=== PATIENT | male | born 1970 | race Caucasian/White ===

== ENCOUNTER 2020-12-11 10:11 | Day surgery (SDC) | payer OTHER, SELFPAY ==
--- NOTE | 2020-12-11 | ESO_PTH ---
PATIENT: NADEEN AKINS LOC: EN U#:[id number] AGE/SX: 50/M ROOM: RE12/11/[address]: Dr. Vishal Gates DO : 1970 BED: DIS: 12/11/2020 SPEC #: [id number] RECD: 12/11/20 13:30 STATUS: ALYCE JEFF #: [id number] HERNAN: 12/11/20 00:[address]: Vishal Gates DEPT: SURGICAL PATHOLOGY RECD BY: Chris Hartley ENTERED: 12/12/20 09:13 SP TYPE: CAROL FELDMAN DR: Dr. Van Waldrop MD Tissues: Esophagus, NOS Procedures: Surgery Specimen Level IV HEADER [place] [place] DIAGNOSIS: Eosinophilic esophagitis; abdominal pain TISSUE SUBMITTED: Mid esophagus MICROSCOPIC DIAGNOSIS Mid esophagus, biopsy: Fragments of squamous mucosa with changes consistent with eosinophilic esophagitis. See comment. PEPITO:girish 12/15/2020 COMMENT Increased number of eosinophils (>20/hpf) consistent with eosinophilic esophagitis are noted. Correlation with clinical, endoscopic findings and appropriate follow up are necessary. MICROSCOPIC DESCRIPTION Slides are reviewed. GROSS DESCRIPTION Received in fixative is one container labeled with the patient's name and designated mid esophagus biopsy. The specimen consists of multiple irregular fragments of light oliva soft tissue that in aggregate measure 1 x 0.3 x 0.1 cm. The specimen is totally submitted in one cassette. / PEPITO:girish 12/12/20 TC:3 CPT: 76986
[2020-12-11] MEDS: Lactated Ringers 1,000 ML 15 ML IV (10:20)
[2020-12-11 10:43] VITALS: BP 136/92; PULSE 77; RESP 16; TEMP 36.6; O2SAT 99; BMI 33.1
--- NOTE | 2020-12-11 10:46 | PCM.HP.BLA ---
History and Physical Date of Admission: 12/11/20 1 M who presents to the office today for Evaluation of emesis of food and what looks like dark blood with reflux, burning and difficulty swallowing. He states he was previously Prevacid was on Prevacid previously there was changed to pantoprazole. He was told that he has difficulty with being allergic to something that causes rings in his esophagus to swell. He denies any chest pain or shortness of breath. He denies any nausea. He denies any numbness or tingling this. EGD performed by Dr. Narvaez around 1999. ROS Const Constitutional: Positive for fatigue ENT ENT: Positive for difficulty swallowing and sore throat Gastro GI: Positive for heartburn, difficulty swallowing, Vomiting blood/hematemesis and vomiting Genitourinary Male: Positive for urinary frequency Endo Endocrine: Positive for fatigue and increased urine leakage Exam Const General: cooperative and comfortable Nutritional Appearance: average body habitus and well nourished HENMT Head: normal to inspection Ears: hearing grossly normal bilaterally Nose: external nose normal Face and sinus: normal facial exam Mouth: oral mucosae normal Throat: posterior oropharynx normal Eyes General: appearance normal, both eyes and all related structures Neck Neck: normal visual inspection Chest Chest palpation & inspection: normal inspection of the chest and normal palpation of entire chest wall Resp Effort & Inspection: normal respiratory effort Auscultation: Bilateral: Clear to Auscultation Cardio Palpation: normal PMI Rate: regular rate Rhythm: regular rhythm GI Inspection: normal to inspection Auscultation: normal bowel sounds Percussion: normal to percussion Palpation: no hepatosplenomegaly Skin General: no rashes or lesions noted Neuro General: patient alert Extrem General: normal to inspection Psych Affect: normal affect Quality Reporting Tobacco Screening ([facility] 138) Smoking Status: Never smoker Assessment and Plan Assessment and Plan (1) Eosinophilic esophagitis: Status: Acute Plan - Dr. Rodgers Friend, DO: We will perform an upper endoscopy to evaluate his upper GI tract. We will also take random biopsies to the esophagus. If he needs to be dilated we will dilate his esophagus. (2) Abdominal pain: Status: Acute Plan - Dr. Rodgers Friend, DO: Peptic ulcer disease is a possible etiology of his abdominal pain. It has gotten better since going on PPI therapy. He was told that he had an ulcer previously. He does not know if it was in the small bowel or other stomach. He will not take any NSAIDs for the next several days until he has an upper endoscopy. At that time will be able to tell him exactly how to monitor his symptoms.
[2020-12-11 12:37] VITALS: BP 125/77; BP 136/92; PULSE 77; RESP 18; TEMP 36; O2SAT 92
[2020-12-11 12:40] VITALS: BP 127/80; BP 136/92; PULSE 71; RESP 22; O2SAT 93
[2020-12-11 12:44] VITALS: BP 111/58; BP 136/92; PULSE 69; RESP 20; O2SAT 97
--- NOTE | 2020-12-11 12:46 | OP.EGD_ITS ---
Patient Name: Gil Carreno Procedure Date: 12/11/2020 12:11 PM Date of : 1970 Age: 50 Procedure: Upper GI endoscopy Indications: Dysphagia Providers: Vishal Gates DO Medicines: See the Anesthesia note for documentation of the administered medications Patient Profile: This is a 50 year old male. Refer to note in patient chart for documentation of history and physical. Patient has symptoms. He is status post EGD for biopsy and EGD for dilation. Complications: No immediate complications. Procedure: Pre-Anesthesia Assessment: - Prior to the procedure, a History and Physical was performed, and patient medications and allergies were reviewed. The patient is competent. The risks and benefits of the procedure and the sedation options and risks were discussed with the patient. All questions were answered and informed consent was obtained. Patient identification and proposed procedure were verified by the physician in the pre-procedure area. Mental Status Examination: alert and oriented. Airway Examination: normal oropharyngeal airway and neck mobility. Respiratory Examination: clear to auscultation. CV Examination: normal. Prophylactic Antibiotics: The patient does not require prophylactic antibiotics. Prior Anticoagulants: The patient has taken no previous anticoagulant or antiplatelet agents. ASA Grade Assessment: II - A patient with mild systemic disease. After reviewing the risks and benefits, the patient was deemed in satisfactory condition to undergo the procedure. The anesthesia plan was to use moderate sedation / analgesia (conscious sedation). Immediately prior to administration of medications, the patient was re-assessed for adequacy to receive sedatives. The heart rate, respiratory rate, oxygen saturations, blood pressure, adequacy of pulmonary ventilation, and response to care were monitored throughout the procedure. The physical status of the patient was re-assessed after the procedure. After obtaining informed consent, the endoscope was passed under direct vision. Throughout the procedure, the patient's blood pressure, pulse, and oxygen saturations were monitored continuously. The Endoscope was introduced through the mouth, and advanced to the second part of duodenum. The upper GI endoscopy was accomplished without difficulty. The patient tolerated the procedure well. Moderate Sedation: Moderate (conscious) sedation was administered by the endoscopy nurse and supervised by the endoscopist. The patient's oxygen saturation, heart rate, blood pressure and response to care were monitored. Total physician intraservice time was 15 minutes. Scope In: 12:23:42 PM Scope Out: 12:30:51 PM Total Procedure Duration Time 0 hours 7 minutes 9 seconds Findings: Mucosal changes including ringed esophagus, feline appearance, longitudinal furrows, small-caliber esophagus, white plaques, circumferential folds, congestion (edema), crepe paper esophagus, esophageal erosions, longitudinal markings, mucosal friability, punctuate white spots, stenosis, tight circumferential folds and vertical lines were found in the entire esophagus. Esophageal findings were graded using the Eosinophilic Esophagitis Endoscopic Reference Score (EoE-EREFS) as: Edema Grade 1 Present (decreased clarity or absence of vascular markings), Rings Grade 3 Severe (distinct rings that do not permit passage of diagnostic 8-10 mm endoscope), Exudates Grade 2 Severe (scattered white lesions involving 10 percent or greater of the esophageal surface area), Furrows Grade 1 Present (vertical lines with or without visible depth), Stricture present (4 mm luminal diameter) and Stricture present (5 mm luminal diameter). Biopsies were taken with a cold forceps for histology. Verification of patient identification for the specimen was done. A TTS dilator was passed through the scope. Dilation with a 15-16.5-18 mm balloon dilator was performed to 15 mm. The dilation site was examined following endoscope reinsertion and showed complete resolution of luminal narrowing. Estimated blood loss was minimal. Impression: - Esophageal mucosal changes secondary to eosinophilic esophagitis. Biopsied. Dilated. Recommendation: - Discharge patient to home. - Full liquid diet today. - Use Protonix (pantoprazole) 40 mg PO BID for 8 weeks. - Continue present medications. Procedure Code(s): --- Professional --- 50006, 59, Esophagogastroduodenoscopy, flexible, transoral; with transendoscopic balloon dilation of esophagus (less than 30 mm diameter) G0500, Moderate sedation services provided by the same physician or other qualified health health care aide performing a gastrointestinal endoscopic service that sedation supports, requiring the presence of an independent trained observer to assist in the monitoring of the patient's level of consciousness and physiological status; initial 15 minutes of intra-service time; patient age 5 years or older (additional time may be reported with 63010, as appropriate) Diagnosis Code(s): --- Professional --- K20.0, Eosinophilic esophagitis R13.10, Dysphagia, unspecified CPT copyright 2017 [employer]. All rights reserved. The codes documented in this report are preliminary and upon insurance coder review may be revised to meet current compliance requirements. Vishal Gates DO 12/11/2020 12:45:58 PM This report has been signed electronically. Number of Addenda: 1 Note Initiated On: 12/11/2020 12:11 PM Addendum Number: 1 Addendum Date: 10/09/2021 6:14:13 AM MAC was used instead of moderate sedation for this patient. Vishal Gates DO 10/09/2021 6:14:18 AM This report has been signed electronically.
[2020-12-11 12:47] VITALS: BP 124/88; BP 136/92; PULSE 65; RESP 20; TEMP 36.2; O2SAT 100
[2020-12-11] MEDS: Sucralfate 1 GM Tablet PO (13:36)
[2020-12-11 14:04] VITALS: BP 136/92
== END 2020-12-11 14:10 | disposition home or self-care (01) ==
LOC: EN 10:24 → AC 10:25
PROVIDERS: PCP Family Medicine; Referring Provider Family Medicine; Visit Provider Internal Medicine Gastroenterology
PROC: 0DJ08ZZ Inspection of Upper Intestinal Tract, Via Natural or Artificial Opening Endoscopic (ICD-10-PCS; CPT 43235; principal; 2020-12-11 13:10)
DX: K20.0 Eosinophilic esophagitis (principal); R13.10 Dysphagia, unspecified; R10.9 Unspecified abdominal pain
CPT/HCPCS: 43249; 87426; 88305; J7120; J2405; J3490

== ENCOUNTER → 2020-12-25 16:29 | Outpatient (CLI) | payer OTHER, SELFPAY ==
[2020-12-29 13:28] LABS: Gastrin, Serum 23 pg/mL (0-115)
== END ==
PROVIDERS: PCP Family Medicine; Visit Provider Internal Medicine Gastroenterology
DX: K20.0 Eosinophilic esophagitis (principal)
CPT/HCPCS: 36415; 82941

== ENCOUNTER 2024-03-10 09:44 | Emergency (ER) | payer OTHER, SELFPAY ==
[2024-03-10 09:44] VITALS: BP 129/94; PULSE 89; RESP 20; TEMP 36.1; O2SAT 100; BMI 29.5
--- NOTE | 2024-03-10 09:51 | EKG12_ITS ---
Test Reason : GENERAL Blood Pressure : */* mmHG Vent. Rate : 80 BPM Atrial Rate : 80 BPM P-R Int : 172 ms QRS Dur : 86 ms QT Int : 350 ms P-R-T Axes : 12 0 9 degrees QTcB Int : 403 ms Normal sinus rhythm Normal ECG Confirmed by JABARI CASTRO, AMANDA ([id number]), field map editor RHONA BROCK ([id number]) on 03/12/2024 8:17:34 AM Referred By: Confirmed By: AMANDA BARBOZA MD
--- NOTE | 2024-03-10 10:01 | CT_ITS ---
PROCEDURE: ABDOMEN/PELVIS W IV CONT ONLY REASON FOR EXAM: Pain TECHNIQUE: Abdomen and pelvis CT with intravenous contrast. IV CONTRAST: COMPARISON: None. FINDINGS: Lung bases: Clear Liver: Unremarkable. Gallbladder: Unremarkable. Spleen: Unremarkable. Pancreas: Unremarkable. Adrenals: Unremarkable. Kidneys: Unremarkable. Bladder: Unremarkable. Reproductive Organs: Unremarkable. Bowel: Normal appendix. No dilation. Prominent diverticulosis in the sigmoid colon with notable pericolonic inflammatory stranding surrounding the sigmoid colon with an additional peripherally enhancing low-attenuation abscess adjacent to the sigmoid colon measuring 3.0 x 2.3 cm. No prominent pneumoperitoneum. Appendix: Normal. Lymph nodes: No suspicious lymph node enlargement. Vasculature: Major vascular structures are unremarkable. Peritoneum / Retroperitoneum: No ascites. No free air. Bones: Unremarkable. CT/Abdomen/Pelvis W IV Cont ONLY IMPRESSION: Complicated sigmoid diverticulitis with perisigmoid abscess, as described above . One or more dose reduction techniques were used (e.g., Automated exposure contr ol, adjustment of the mA and/or kV according to patient size, use of iterative reconstruction technique). Reading Location: [facility]
--- NOTE | 2024-03-10 10:01 | EX.ED.DYSGE1 ---
HPI History of Present Illness Chief Complaint: Abd Pain Narrative Narrative: Patient is a 53-year-old male with a past medical history of anemia, GERD, send follow-up esophagitis who presented to the emerged part with a chief complaint of abdominal pain. He states that he saw his primary care physician on was tested for a bladder infection was prescribed antibiotics however states that on Tuesday when the culture result came back was told that this was normal and states that if he had pain or worsening pain he was to come to the emergency department. He states the pain is worse at night and is improving throughout the day. Patient states he has not had any issues with constipation in the past. Patient states that he is passing gas and denies any dark tarry stools or blood in stool states that he is having diarrhea. Patient states that he has had hernia surgery at a young age but denies any other previous abdominal surgeries. Denies any sick contacts. [facility] Medical History Loss of hearing Anemia Difficulty swallowing History of ulceration Gastric reflux Former smoker Abdominal pain Eosinophilic esophagitis Home Medications ?Medication ?Instructions ?Recorded ?Last Taken ?Type pantoprazole 40 mg tablet,delayed 40 mg PO BID #60 TABLETS 02/06/24 Unknown Rx release ciprofloxacin HCl 500 mg tablet 500 mg PO Q12H 14 days #28 tabs 03/10/24 Unknown Rx metronidazole 500 mg tablet 500 mg PO TID 14 days #42 tabs 03/10/24 Unknown Rx ondansetron 4 mg disintegrating 4 mg PO Q6H PRN nausea and 03/10/24 Unknown Rx tablet vomiting #20 tabs oxycodone-acetaminophen 5 mg-325 1 tab PO Q4H PRN pain 3 days #12 03/10/24 Unknown Rx mg tablet tabs Allergy/AdvReac Type Severity Reaction Status Date / Time Penicillins Allergy Swelling Verified 03/10/24 09:46 Surgical History History of esophagogastroduodenoscopy (EGD) Hx of colonoscopy Social History household members: family housing: house Smoking Status: Former smoker ROS ROS ED ROS Narrative Constitutional: Denies any fevers, chills, headaches Eyes: Denies change in vision double vision blurry vision Cardiovascular: Denies chest pain or palpitations Respiratory: Denies coughing wheezing shortness of breath Abdomen: Complains of abdominal pain and diarrhea as noted above denies nausea or vomiting : Denies painful urination, hematuria, polyuria Neurological: Denies any numbness, weakness, tingling Musculoskeletal: Denies back pain Skin: denies rashes or lesions EXAM Physical Exam Narrative Exam Narrative: General: Patient was lying in bed rest comfortably did not appear to be in acute distress Head: Atraumatic, normocephalic Eyes: PERRL bilaterally, EOMI bilaterally, no conjunctival injection noted Neck: Soft, supple, trachea midline Cardiovascular: Regular rate and rhythm Respiratory: Clear to auscultation bilaterally Abdomen: Soft, nondistended, tenderness palpation in the left lower quadrant and suprapubic region no rebound or guarding on exam Extremities: +5/5 strength noted in the bilateral upper and lower extremities, radial pulses +2/4 in the bilateral per extremities, no pedal edema on exam Neurological: Patient following commands knew that he was at [facility] year is 2024 Skin: Warm, dry, intact no rashes or lesions noted Const Vital Signs: 03/10/24 09:44 Temperature 97.0 F L Temperature Source Temporal Pulse Rate 89 Respiratory Rate 20 H Blood Pressure 129/94 H Blood Pressure Mean 105 Pulse Ox 100 Oxygen Delivery Method Room Air MDM MDM MDM Narrative Medical decision making narrative: Patient is a 53-year-old male who presented to the emergency department the chief complaint of abdominal pain. On the differential diagnose includes but not limited to diverticulitis, appendicitis, bowel obstruction. Once workup is obtained reviewed he will be reevaluated. Patient given IV fluids, morphine Zofran. Patient CBC reviewed and showed no evidence leukocytosis white blood count was 10.2, hemoglobin was 11, plate count was noted be 390. Patient sodium was noted to be 134, potassium normal at 4.1, creatinine was 1.36 which is slightly elevated from his baseline. Patient AST and ALT were 83 and 137 respectively. Patient's urinalysis reviewed showed no evidence of infection. Patient CT abdomen pelvis with IV contrast was reviewed that showed complicated sigmoid diverticulitis with a perisigmoid abscess. Did order the patient ciprofloxacin and Flagyl given his allergy to penicillin. I did call and discussed case with on-call general surgeon Dr. Del Toro who came in and evaluated the patient at bedside. He states that he will follow-up with the patient in the outpatient setting early this coming week. He is recommending placing the patient on ciprofloxacin and Flagyl and the patient completing a clear liquid diet until the pain resolves advance as tolerated. Patient will given a prescription for Percocet Zofran for severe pain. He was encouraged to return with worsening symptoms and concerns. He is agreeable this plan all question concerns answered he is discharged home in stable condition. Lab Data Labs: Laboratory Results - last 24 hr 03/10/24 03/10/24 10:00 10:42 WBC 10.2 RBC 5.15 Hgb 11.0 L Hct 37.6 L MCV 73.0 L MCH 21.4 L MCHC 29.3 L RDW Std Deviation 40.1 RDW Coeff of Bernardo 15.5 H Plt Count 390 MPV 10.2 Immature Gran % (Auto) 0.300 Neut % (Auto) 76.8 H Lymph % (Auto) 9.9 L Day % (Auto) 8.5 Eos % (Auto) 3.7 Baso % (Auto) 0.8 Absolute Neuts (auto) 7.9 H Absolute Lymphs (auto) 1.01 Nucleated RBC % 0 Sodium 134 L Potassium 4.1 Chloride 104 Carbon Dioxide 21.0 Anion Gap 8 BUN 10 Creatinine 1.36 H Estim Creat Clear Calc 65.66 Est GFR (MDRD) Af Amer 70 Est GFR (MDRD) Non-Af 58 L BUN/Creatinine Ratio 7.4 L Glucose 88 Calcium 8.8 Total Bilirubin 0.50 AST 83 H ALT 137 H Alkaline Phosphatase 116 Total Protein 7.9 Albumin 3.5 Globulin 4.4 H Albumin/Globulin Ratio 0.8 L Lipase 41 Urine Color Yellow Urine Clarity Clear Urine pH 6.0 Ur Specific [place] 1.020 Urine Protein 15 H Urine Glucose (UA) Normal Urine Ketones Negative Urine Occult Blood 10 H Urine Nitrite Negative Urine Bilirubin Negative Urine Urobilinogen Normal Ur Leukocyte Esterase 25 H Urine RBC 0 SEEN Urine WBC 0-5 SEEN Ur Squamous Epith Cells 0 SEEN Urine Bacteria 0 SEEN Urine Mucus 0 SEEN Radiography Diagnostic Testing: Clinical Impression(s) from Imaging Studies Abdomen/Pelvis CT 03/10/24 10:01 IMPRESSION: Complicated sigmoid diverticulitis with perisigmoid abscess, as described above. One or more dose reduction techniques were used (e.g., Automated exposure control, adjustment of the mA and/or kV according to patient size, use of iterative reconstruction technique). Reading Location: [facility] Discharge Plan Triage Chief Complaint: Abd Pain ED Provider: Bubba Mcfarland Dx/Rx/DC Orders Clinical Impression: Diverticulitis of intestine with abscess Prescriptions: New ciprofloxacin HCl 500 mg tablet 500 mg PO Q12H 14 Days Qty: 28 0RF metronidazole 500 mg tablet 500 mg PO TID 14 Days Qty: 42 0RF ondansetron 4 mg tablet,disintegrating 4 mg PO Q6H PRN (Reason: nausea and vomiting) Qty: 20 0RF oxycodone-acetaminophen 5-325 mg tablet 1 tab PO Q4H PRN (Reason: pain) 3 Days Qty: 12 0RF No Action pantoprazole 40 mg tablet,delayed release (DR/EC) 40 mg PO BID Qty: 60 4RF Primary Care Provider: Van Waldrop Referrals: Van Waldrop MD [Primary Care Provider] - Activity Restrictions/Additional Instructions: Follow-up with Dr. Del Toro in the outpatient setting as he discussed with you here in the emergency department. Take antibiotics as prescribed. Use the Percocet and Zofran for severe pain do not operate anything under the influence of the Percocet. Clear liquid diet until pain resolves. Your CT scan showed diverticulitis with abscess. You need to return with worsening symptoms or any other concerns Print Language: Algerian Disposition Disposition: Home, Self Care
[2024-03-10] MEDS: Ondansetron 4 MG/2 ML Vial IV (10:10)
[2024-03-10] MEDS: 0.9% Normal Saline (1000mL) 1,000 ML 999 ML IV (10:10)
[2024-03-10] MEDS: Morphine 4 MG/ML Syringe IV ×2 (10:10→12:22)
[2024-03-10 10:13] LABS: Absolute Lymphocyte Count 1.01 X10^3/uL (0.83-4.51); Absolute Neutrophil Count 7.9 X10^3/uL (2.0-7.7); Basophil# 0.08 X10^3/uL; Basophil% 0.8 % (0-1); Eosinophil# 0.38 X10^3/uL; Eosinophils% 3.7 % (0-5); Hematocrit 37.6 % (40-54); Lymphocyte # 1.01 X10^3/ul (0.83-4.51); Lymphocyte % 9.9 % (19-41); Mean Corp Hgb Conc 29.3 g/dL (32-36); Mean Corpuscular Hgb 21.4 pg (27.0-32.0); Mean Platelet Vol. 10.2 fl (6.2-12.0); Monocyte# 0.87 X10^3/uL; Monocyte% 8.5 % (0-10); NRBC Flagged by Analyzer 0 % (0-5); Neutrophil # 7.85 X10^3/uL (2.7-7.7); Neutrophil % 76.8 % (47-70); Platelet Count 390 K/mm3 (150-450); RBC Distribution Width CV 15.5 % (11.6-14.6); RBC Distribution Width SD 40.1 fl (35.1-43.9); Red Blood Count 5.15 M/mm3 (4.6-6.2); White Blood Count 10.2 K/mm3 (4.4-11.0)
[2024-03-10 10:37] LABS: ALB/GLOB Ratio 0.8 RATIO (0.9-2.4); AST(SGOT) 83 U/L (15-37); Alanine Aminotransfer ALT/SGPT 137 U/L (16-61); Albumin, Serum 3.5 g/dL (3.2-5.0); Alkaline Phosphatase 116 U/L (45-117); Anion Gap 8 (5-15); BUN 10 mg/dL (7-18); BUN/Creat Ratio 7.4 RATIO (10-20); Calcium,Total 8.8 mg/dL (8.5-10.1); Chloride 104 mmol/L (98-107); Creatinine, Serum 1.36 mg/dL (0.70-1.30); EST Glomerular Filtration Rate 58 mL/min (>60); Est Glom Filt Rate - Afr Amer 70 mL/min (>60); Estimated Creatinine Clearance 65.66 ml/min; Globulin 4.4 g/dL (2.2-4.2); Glucose 88 mg/dL (74-106); Lipase 41 U/L (13-75); Potassium 4.1 mmol/L (3.5-5.1); Protein, Total 7.9 g/dL (6.4-8.2); Sodium Level 134 mmol/L (136-145)
[2024-03-10 10:46] LABS: Bacteria 0 SEEN /hpf (None Seen); Mucous, Urine 0 SEEN /hpf (<or=2+); Red Blood Cells-Urine 0 SEEN /hpf (0-5); Squamous Epithelial Cells - UA 0 SEEN /hpf (0-5)
[2024-03-10 10:59] LABS: Color, Urine Yellow (Yellow); Glucose, Dipstick Normal (Normal); Ketone-Dipstick Negative (Negative); Leukocyte Esterase-Dipstick 25 /ul (Negative); Nitrite-Dipstick Negative (Negative); Occult Blood-Urine 10 /ul (Negative); Protein-Dipstick 15 mg/dl (Negative); Urine Bilirubin Dipstick Negative (Negative); Urine Clarity Clear (Clear); Urine Urobilinogen Normal (Normal)
[2024-03-10 11:13] LABS: White Blood Cells 0-5 SEEN /hpf (0-5)
[2024-03-10] MEDS: Ciprofloxacin 400 MG/200 ML BAG 200 MG IV (11:30)
[2024-03-10 11:44] VITALS: BP 128/70; PULSE 66; RESP 16; O2SAT 100
--- NOTE | 2024-03-10 12:01 | EX.PCM.CON.S ---
Assessment & Plan Assessment/Plan (1) Diverticulitis of intestine with abscess: PLAN: The patient has diverticulitis with a small abscess. I reviewed his CT scan and I believe that it is very mild. There is not much stranding and the thickening of the colon appears mild. I think that this will resolve without drainage. I offered him admission versus outpatient. I believe outpatient management would be appropriate. I will send him home on 2 weeks of oral antibiotics. He will go home on a clear liquid diet until pain resolves and then he will advance to full liquid diet. He will see me in the office this week and I gave him my number to call on Tuesday to make an appointment. I will order a repeat CT later this week to ensure resolution of the abscess. If any of the patient's pain or fever or chills gets worse he will contact me and I will admit him. Mane Del Toro MD Pager: [facility] [address] [place] [address], [address] [place] [address] Office: HPI Consult Data Date of Consult: 03/10/24 HPI Narrative HPI Narrative: NADEEN AKINS, is a 53 M who presents with abdominal pain. Patient reports this started on Tuesday which would be 4 days ago. He says that it got better and then got worse again last night and that made him come to the hospital this morning. He denies nausea or vomiting. He does state he had a low-grade fever with some chills. He says the pain is in his lower abdomen and it is pretty focal. He denies blood in the stool. He has never had diverticulitis in the past. REPLACED BY [facility] Medical History Loss of hearing Anemia Difficulty swallowing History of ulceration Gastric reflux Former smoker Abdominal pain Eosinophilic esophagitis Home Medications ?Medication ?Instructions ?Recorded ?Last Taken ?Type pantoprazole 40 mg tablet,delayed 40 mg PO BID #60 TABLETS 02/06/24 Unknown Rx release Allergy/AdvReac Type Severity Reaction Status Date / Time Penicillins Allergy Swelling Verified 03/10/24 09:46 Surgical History History of esophagogastroduodenoscopy (EGD) Hx of colonoscopy Social History Smoking Status: Former smoker ROS Constitutional Constitutional: Reports chills and fever(s); Denies anorexia or fatigue Eyes Eyes: Denies blurry vision ENT HEENT: Denies abnormal hearing Cardiovascular Cardiovascular: Denies chest pain or chest pain at rest Respiratory/Chest Respiratory/Chest: Denies cough or dyspnea Gastrointestinal Gastrointestinal: Reports abdominal pain; Denies constipation, diarrhea, hematemesis, hematochezia, nausea or vomiting Genitourinary Genitourinary: Denies change in urinary stream Integumentary Integumentary: Denies jaundice or new lesions Neurologic Neurologic: Denies abnormal gait Psychiatric Psychiatric: Denies anxiety Physical Exam Const alert and oriented x3 HEENT normocephalic Eyes PERRL Neck full ROM Resp normal respiratory effort Cardio Rate: regular rate Rhythm: regular rhythm GI soft to palpation and non-tender Extremity normal to inspection Neuro CN's II-XII intact bilaterally Lab / Micro Data 03/10/24 10:00 03/10/24 10:00 Labs: Laboratory Results - last 24 hr 03/10/24 10:00: WBC 10.2, RBC 5.15, Hgb 11.0 L, Hct 37.6 L, MCV 73.0 L, MCH 21.4 L, MCHC 29.3 L, RDW Std Deviation 40.1, RDW Coeff of Bernardo 15.5 H, Plt Count 390, MPV 10.2, Immature Gran % (Auto) 0.300, Neut % (Auto) 76.8 H, Lymph % (Auto) 9.9 L, Mower % (Auto) 8.5, Eos % (Auto) 3.7, Baso % (Auto) 0.8, Absolute Neuts (auto) 7.9 H, Absolute Lymphs (auto) 1.01, Nucleated RBC % 0, Sodium 134 L, Potassium 4.1, Chloride 104, Carbon Dioxide 21.0, Anion Gap 8, BUN 10, Creatinine 1.36 H, Estim Creat Clear Calc 65.66, Est GFR (MDRD) Af Amer 70, Est GFR (MDRD) Non-Af 58 L, BUN/Creatinine Ratio 7.4 L, Glucose 88, Calcium 8.8, Total Bilirubin 0.50, AST 83 H, ALT 137 H, Alkaline Phosphatase 116, Total Protein 7.9, Albumin 3.5, Globulin 4.4 H, Albumin/Globulin Ratio 0.8 L, Lipase 41 03/10/24 10:42: Urine Color Yellow, Urine Clarity Clear, Urine pH 6.0, Ur Specific Sheridan 1.020, Urine Protein 15 H, Urine Glucose (UA) Normal, Urine Ketones Negative, Urine Occult Blood 10 H, Urine Nitrite Negative, Urine Bilirubin Negative, Urine Urobilinogen Normal, Ur Leukocyte Esterase 25 H, Urine RBC 0 SEEN, Urine WBC 0-5 SEEN, Ur Squamous Epith Cells 0 SEEN, Urine Bacteria 0 SEEN, Urine Mucus 0 SEEN Imaging Radiology Impression Abdomen/Pelvis CT 03/10/24 10:01 IMPRESSION: Complicated sigmoid diverticulitis with perisigmoid abscess, as described above. One or more dose reduction techniques were used (e.g., Automated exposure control, adjustment of the mA and/or kV according to patient size, use of iterative reconstruction technique). Reading Location: [facility]
[2024-03-10 13:00] VITALS: BP 127/71; PULSE 69; RESP 16; O2SAT 99
[2024-03-10 13:51] VITALS: BP 121/70; PULSE 66; RESP 16; TEMP 36.6; O2SAT 99
== END 2024-03-10 13:52 | disposition home or self-care (01) ==
PROVIDERS: Emergency Provider Emergency Medicine; PCP Family Medicine; Visit Provider Emergency Medicine
DX: K57.20 Diverticulitis of large intestine with perforation and abscess without bleeding (principal); Z87.891 Personal history of nicotine dependence
CPT/HCPCS: 74177; 80053; 81001; 83690; 85025; 93005; 96361; 96365; 96367; 96375; 96376; 99282; Q9967; A4216; J0744; J2405

== ENCOUNTER → 2024-04-09 | Outpatient (CLI) | payer OTHER, SELFPAY ==
--- NOTE | 2024-04-09 16:54 | CT_ITS ---
PROCEDURE: ABDOMEN/PELVIS WITH CONTRAST REASON FOR EXAM: Diverticulitis. Follow-up. TECHNIQUE: Abdomen and pelvis CT with intravenous contrast. Coronal and sagittal 2D reformatted images were provided. COMPARISON: CT abdomen/pelvis from 03/10/2024. FINDINGS: Lung bases are clear. The liver, spleen, gallbladder, pancreas, biliary system, and adrenal glands are unremarkable. There is a small to moderate hiatal hernia. Bilateral kidneys enhance homogeneously without hydronephrosis or obstructive uropathy. There is a small fat containing umbilical hernia. Urinary bladder is underdistended. Prostate gland is mildly enlarged measuring 4.6 x 4.0 cm in the transverse and AP dimensions respectively. Colonic diverticulosis is identified without diverticulitis. Previously identified acute diverticulitis and sigmoid abscess have resolved in the interim. No colonic obstruction is present. Appendix is unremarkable. Small bowel demonstrates a normal caliber. No free air or free fluid is identified. There is a fat containing left inguinal hernia. Evaluation of the osseous structures demonstrates no acute findings. Degenerative changes are present. CT/Abdomen/Pelvis WITH Contrast IMPRESSION: 1. Previously identified sigmoid diverticulitis with abscess has resolved in e interim. No acute diverticulitis identified. 2. Small to moderate-sized hiatal hernia. 3. Mildly enlarged prostate gland. 4. Additional findings as above. One or more dose reduction techniques were used (e.g., Automated exposure contr ol, adjustment of the mA and/or kV according to patient size, use of iterative reconstruction technique). Reading Location: [facility]
== END | disposition home or self-care (01) ==
LOC: CT 16:51
PROVIDERS: PCP Family Medicine; Referring Provider Surgery; Visit Provider Surgery
DX: K57.80 Diverticulitis of intestine, part unspecified, with perforation and abscess without bleeding (principal)
CPT/HCPCS: 74177; Q9967